=== PATIENT | female | born 1995 | race African-American/Black ===

== ENCOUNTER 2018-01-31 18:08 | Emergency (ER) | payer OTHER ==
[~2018-01-31] VITALS: Ht 165.1 cm; Wt 62.3 kg
[2018-01-31 19:30] VITALS: BP 115/68
[2018-01-31] MEDS ORDERED: ACETAMINOPHEN 500 MG TABLET PO ONE (19:45)
[2018-01-31] MEDS ORDERED: AMOXICILLIN TRIHYDRATE 250 MG CAPSULE PO ONE (19:45)
== END 2018-01-31 20:15 | disposition home or self-care (01) ==
LOC: EMS 18:09
DX: H92.22 Otorrhagia, left ear (principal); H92.02 Otalgia, left ear; J45.909 Unspecified asthma, uncomplicated
CPT/HCPCS: 99283